=== PATIENT | male | born 1995 | race Caucasian/White ===

== ENCOUNTER 2018-09-14 21:42 | Emergency (ER) | payer MEDICAID ==
[~2018-09-14] VITALS: Ht 170.2 cm; Wt 77.1 kg
[2018-09-14 21:46] VITALS: BP 135/91
[2018-09-14] MEDS ORDERED: IBUPROFEN 600 MG TABLET PO ONE (22:30)
[2018-09-14] MEDS ORDERED: DEXAMETHASONE 4 MG TABLET PO ONE (22:30)
[2018-09-14] MEDS ORDERED: IBUPROFEN 600 MG TABLET ONE (22:31)
[2018-09-14] MEDS ORDERED: DEXAMETHASONE 4 MG TABLET ONE (22:31)
--- NOTE | 2018-09-14 22:36 | NUR ---
PT MEDICATED PER MAR.
--- NOTE | 2018-09-14 23:25 | NUR ---
PT D/C WITH D/C SUMMARY. ALL QUESTIONS ANSWERED. PT DENIES ANY OTHER NEEDS PERTAINING TO THIS VISIT.
== END 2018-09-14 23:27 | disposition home or self-care (01) ==
LOC: ED 23:09
DX: J02.8 Acute pharyngitis due to other specified organisms (principal); B97.89 Other viral agents as the cause of diseases classified elsewhere
CPT/HCPCS: 99283

== ENCOUNTER 2018-09-16 22:01 | Emergency (ER) | payer MEDICAID ==
[~2018-09-16] VITALS: Ht 167.6 cm; Wt 77.3 kg
[2018-09-16] MEDS ORDERED: OMNIPAQUE 350 MG/ML, 100ML BOTTLE ONE (22:16)
[2018-09-16] MEDS ORDERED: KETOROLAC 30 MG/1 ML ONE (22:18)
[2018-09-16] MEDS ORDERED: DEXAMETHASONE 4 MG/ML, 1ML ONE (22:18)
[2018-09-16] MEDS ORDERED: IBUPROFEN (22:24)
--- NOTE | 2018-09-16 22:28 | NUR ---
PLEASANT GENTLEMAN HERE NOTING THAT HE WAS SEEN HERE ON THE FOR SORE THROAT, GIVEN DECADRON AND IBUPROFEN, NO ABX. NOTES THAT THE PAIN AND SWELLING CONTINUES AND T HIS EVENING STATES THAT HIS L TONSIL WAS BLEEDING
[2018-09-16] MEDS ORDERED: DEXAMETHASONE 4 MG/ML, 1ML IVPush ONE (22:30)
[2018-09-16] MEDS ORDERED: KETOROLAC 30 MG/1 ML IVPush ONE (22:30)
--- NOTE | 2018-09-16 22:30 | NUR ---
AIRWAY INTACT AND ABLE TO CLEAR OWN SECRETIONS AND PO INTAKE.
[2018-09-16 22:35] LABS: BASOPHILS # (AUTO) 0.12 x10^3/uL (0-0.1); BASOPHILS % (AUTO) 1 % (0-1); EOSINOPHILS # (AUTO) 0.31 x10^3/uL (0-0.4); EOSINOPHILS % (AUTO) 3 % (1-7); LYMPHOCYTES # (AUTO) 3.13 x10^3/uL (1-3.4); LYMPHOCYTES % (AUTO) 27 % (22-44); MD NO; MEAN CORPUSCULAR HEMOGLOBIN 31.4 pg (27.5-34.5); MEAN CORPUSCULAR HGB CONC 34.1 g/dL (33.2-36.2); MEAN CORPUSCULAR VOLUME 92.2 fL (81-97); MEAN PLATELET VOLUME 7.9 fL (7.4-10.4); MONOCYTES # (AUTO) 0.58 x10^3/uL (0.2-0.8); MONOCYTES % (AUTO) 5 % (2-9); NEUTROPHILS % (AUTO) 65 % (42-75); PLATELET COUNT 262 x10^3/uL (130-400); RED BLOOD COUNT 5.09 x10^6/uL (4.38-5.82); RED CELL DISTRIBUTION WIDTH 12.6 % (9.4-14.8)
[2018-09-16 22:46] LABS: ALBUMIN 3.8 g/dL (3.4-5.0); ANION GAP 6 mmol/L (5-15); CALCIUM 8.6 mg/dL (8.5-10.1); CHLORIDE 108 mmol/L (98-107); CREATININE 0.83 mg/dL (0.7-1.3)
--- NOTE | 2018-09-16 23:59 | NUR ---
PT RESTING IN BED, NO COMPLAINTS AWAITING RESULTS, VSS
[2018-09-17] VITALS: BP 119/74
== END 2018-09-17 01:20 | disposition home or self-care (01) ==
LOC: ED 23:01
DX: J02.0 Streptococcal pharyngitis (principal)
CPT/HCPCS: 36415; 70491; 80048; 82040; 85025; 87081; 87880; 96374; 96375; 99284; J1100; J1885; Q9967; 87147